=== PATIENT | male | born 1960 | race American Indian/Alaskan Native ===

== ENCOUNTER 2018-05-16 08:40 | Inpatient (IN) | payer OTHER ==
[2018-05-16] MEDS ORDERED: PROTONIX IV ONE (09:28)
[2018-05-16] MEDS ORDERED: WATER FOR INJ Sterile (PF) 10 ML ONE (09:37)
[2018-05-16] MEDS ORDERED: MORPHINE ONE (09:45)
[2018-05-16 09:54] LABS: Hematocrit 46.4 % (35.5-45.6); Hemoglobin 15.8 gm/dl (11.8-15.2); Mean Corpuscular HGB Conc 34 % (32-34); Mean Corpuscular Volume 91 fl (84-94); Platelet Count 203 K/mm3 (140-440); Red Blood Count 5.09 M/mm3 (3.65-5.03); Red Cell Distribution Width 14.3 % (13.2-15.2)
[2018-05-16] MEDS ORDERED: MORPHINE IV ONE (09:57)
[2018-05-16 10:13] LABS: INR 0.85 (0.87-1.13); Partial Thromboplastin Time 21.8 Sec. (24.2-36.6)
--- NOTE | 2018-05-16 10:28 | XRay Report ---
AP CHEST: HISTORY: chest pain AP view of the chest demonstrates a normal mediastinal and cardiac contour with clear lungs and normal bony and soft tissue structures. IMPRESSION: Unremarkable AP chest.
[2018-05-16 10:30] LABS: Blood Urea Nitrogen TNR mg/dL (9-20)
[2018-05-16 10:31] LABS: Alanine Aminotransferase TNR units/L (7-56); Albumin TNR g/dL (3.9-5); BUN/Creatinine Ratio TNR; Calcium TNR mg/dL (8.4-10.2); Hemolysis Index TNR
[2018-05-16 11:12] LABS: Anisocytosis 1+; Band Neutrophils # (Manual) 0.3 K/mm3; Basophils % (Manual) 0 % (0.0-1.8); Eosinophils % (Manual) 0 % (0.0-4.3); Total Cells Counted 100
[2018-05-16 11:13] LABS: Macrocytosis 1+; Platelet Estimate Consistent w Auto
[2018-05-16] MEDS: PROTONIX 80 MG in NACL 0.9% 100 ML IV SCH ×2 (11:28→22:14)
--- NOTE | 2018-05-16 11:28 | Emergency Department Report ---
ED General Adult HPI - General Chief complaint: Abdominal Pain Stated complaint: VOMITING BLOOD Time Seen by Provider: 05/16/18 09:11 Source: patient Mode of arrival: Ambulatory Limitations: No Limitations - History of Present Illness Initial comments: The patient presents to the emergency prompt a chief complaint of vomiting blood 3. Patient states the symptoms started yesterday. He describes the presence of blood in his emesis as bright red what dark clots. He also complains of some mild abdominal pain as well. Patient denies chest pain, shortness breath, or headache. -: Sudden Location: abdomen Severity scale (0 -10): 4 Quality: burning Consistency: constant Improves with: none Worsens with: none Associated Symptoms: denies other symptoms Treatments Prior to Arrival: none - Related Data Home Medications Medication Instructions Recorded Confirmed Last Taken Aspirin [Adult Aspirin] 81 mg PO DAILY 05/16/18 05/16/18 Unknown Fluticasone [Flonase] 1 spray NS QDAY 05/16/18 05/16/18 Unknown Loratadine [Claritin] 10 mg PO DAILY 05/16/18 05/16/18 Unknown Multivitamin/Iron/Folic Acid 1 each PO DAILY 05/16/18 05/16/18 Unknown [Centrum Adults Tablet] Sertraline [Zoloft] 75 mg PO QDAY 05/16/18 05/16/18 Unknown amLODIPine [Norvasc] 5 mg PO DAILY 05/16/18 05/16/18 Unknown Previous Rx's Medication Instructions Recorded Last Taken Type Folic Acid 0.4 mg PO QDAY #30 tablet 05/18/18 Unknown Rx Multivitamin Tab [Multiple Vitamin 1 each PO QDAY #30 tablet 05/18/18 Unknown Rx TAB (Theragran)] Pantoprazole [Protonix TAB] 40 mg PO QDAY #30 tablet 05/18/18 Unknown Rx Thiamine [Vitamin B-1] 100 mg PO QDAY #30 tablet 05/18/18 Unknown Rx chlordiazePOXIDE [Librium] 25 mg PO Q8H #14 capsule 05/18/18 Unknown Rx cloNIDine-TTS PATCH [Catapres-Tts 0.1 mg TD Tu #30 patch 05/18/18 Unknown Rx Patch] Allergies Allergy/AdvReac Type Severity Reaction Status Date / Time No Known Allergies Allergy Verified 05/16/18 08:41 ED Review of Systems ROS: Stated complaint: VOMITING BLOOD Other details as noted in HPI Comment: All other systems reviewed and negative Constitutional: denies: chills, fever Eyes: denies: eye pain, eye discharge, vision change ENT: denies: ear pain, throat pain Respiratory: denies: cough, shortness of breath, wheezing Cardiovascular: denies: chest pain, palpitations Endocrine: no symptoms reported Gastrointestinal: hematemesis. denies: abdominal pain, nausea, diarrhea Genitourinary: denies: urgency, dysuria Musculoskeletal: denies: back pain, joint swelling, arthralgia Skin: denies: rash, lesions Neurological: denies: headache, weakness, paresthesias Psychiatric: denies: anxiety, depression Hematological/Lymphatic: denies: easy bleeding, easy bruising ED Past Medical Hx - Past Medical History Previous Medical History?: Yes Hx Hypertension: Yes Hx Psychiatric Treatment: Yes (depression, PTSD) - Surgical History Past Surgical History?: Yes Hx Appendectomy: Yes - Social History Smoking Status: Former Smoker Substance Use Type: Alcohol - Medications Home Medications: Home Medications Medication Instructions Recorded Confirmed Last Taken Type Aspirin [Adult Aspirin] 81 mg PO DAILY 05/16/18 05/16/18 Unknown History Fluticasone [Flonase] 1 spray NS QDAY 05/16/18 05/16/18 Unknown History Loratadine [Claritin] 10 mg PO DAILY 05/16/18 05/16/18 Unknown History Multivitamin/Iron/Folic Acid 1 each PO DAILY 05/16/18 05/16/18 Unknown History [Centrum Adults Tablet] Sertraline [Zoloft] 75 mg PO QDAY 05/16/18 05/16/18 Unknown History amLODIPine [Norvasc] 5 mg PO DAILY 05/16/18 05/16/18 Unknown History Folic Acid 0.4 mg PO QDAY #30 tablet 05/18/18 Unknown Rx Multivitamin Tab [Multiple Vitamin 1 each PO QDAY #30 tablet 05/18/18 Unknown Rx TAB (Theragran)] Pantoprazole [Protonix TAB] 40 mg PO QDAY #30 tablet 05/18/18 Unknown Rx Thiamine [Vitamin B-1] 100 mg PO QDAY #30 tablet 05/18/18 Unknown Rx chlordiazePOXIDE [Librium] 25 mg PO Q8H #14 capsule 05/18/18 Unknown Rx cloNIDine-TTS PATCH [Catapres-Tts 0.1 mg TD Tu #30 patch 05/18/18 Unknown Rx Patch] ED Physical Exam - General Limitations: No Limitations General appearance: alert, in no apparent distress - Head Head exam: Present: atraumatic, normocephalic - Eye Eye exam: Present: normal appearance, PERRL, EOMI - ENT ENT exam: Present: mucous membranes moist - Neck Neck exam: Present: normal inspection - Respiratory Respiratory exam: Present: normal lung sounds bilaterally. Absent: respiratory distress, wheezes, rales - Cardiovascular Cardiovascular Exam: Present: normal rhythm, tachycardia. Absent: systolic murmur, diastolic murmur, rubs, gallop - GI/Abdominal GI/Abdominal exam: Present: soft, normal bowel sounds. Absent: distended, tenderness - Rectal Rectal exam: Present: deferred - Extremities Exam Extremities exam: Present: normal inspection - Back Exam Back exam: Present: normal inspection - Neurological Exam Neurological exam: Present: alert, oriented X3, CN II-XII intact. Absent: motor sensory deficit - Psychiatric Psychiatric exam: Present: normal affect, normal mood - Skin Skin exam: Present: warm, dry, intact, normal color. Absent: rash ED Course Vital Signs 05/16/18 05/16/18 05/16/18 08:53 09:23 09:25 Temperature 98.5 F Pulse Rate 145 H Respiratory 16 Rate Blood Pressure 147/104 Blood Pressure 161/104 [Left] O2 Sat by Pulse 97 97 97 Oximetry 05/16/18 05/16/18 05/16/18 10:32 11:21 11:30 Temperature Pulse Rate 106 H 106 H Respiratory 17 20 Rate Blood Pressure Blood Pressure 156/105 152/97 [Left] O2 Sat by Pulse 98 98 96 Oximetry 05/16/18 05/16/18 05/16/18 12:00 13:00 14:00 Temperature Pulse Rate 103 H 111 H 102 H Respiratory 14 17 9 L Rate Blood Pressure 141/100 151/106 166/104 Blood Pressure [Left] O2 Sat by Pulse Oximetry 05/16/18 05/16/18 05/16/18 15:00 16:38 17:00 Temperature Pulse Rate 106 H 110 H 96 H Respiratory 12 13 Rate Blood Pressure 159/106 158/103 158/107 Blood Pressure [Left] O2 Sat by Pulse 95 Oximetry 05/16/18 17:11 Temperature Pulse Rate 96 H Respiratory 10 L Rate Blood Pressure 158/107 Blood Pressure [Left] O2 Sat by Pulse Oximetry ED Medical Decision Making - Lab Data Result diagrams: 05/17/18 15:07 05/17/18 05:34 Lab Results 05/16/18 05/16/18 05/16/18 Range/Units 09:37 09:37 09:37 WBC 13.5 H (4.5-11.0) K/mm3 RBC 5.09 H (3.65-5.03) M/mm3 Hgb 15.8 H (11.8-15.2) gm/dl Hct 46.4 H (35.5-45.6) % MCV 91 (84-94) fl MCH 31 (28-32) pg MCHC 34 (32-34) % RDW 14.3 (13.2-15.2) % Plt Count 203 (140-440) K/mm3 Add Manual Diff Complete Total Counted 100 Seg Neuts % (Manual) 83.0 H (40.0-70.0) % Band Neutrophils % 2.0 % Lymphocytes % (Manual) 11.0 L (13.4-35.0) % Reactive Lymphs % (Man) 1.0 % Monocytes % (Manual) 3.0 (0.0-7.3) % Eosinophils % (Manual) 0 (0.0-4.3) % Basophils % (Manual) 0 (0.0-1.8) % Metamyelocytes % 0 % Myelocytes % 0 % Promyelocytes % 0 % Blast Cells % 0 % Nucleated RBC % Not Reportable Seg Neutrophils # Man 11.2 H (1.8-7.7) K/mm3 Band Neutrophils # 0.3 K/mm3 Lymphocytes # (Manual) 1.5 (1.2-5.4) K/mm3 Abs React Lymphs (Man) 0.1 K/mm3 Monocytes # (Manual) 0.4 (0.0-0.8) K/mm3 Eosinophils # (Manual) 0.0 (0.0-0.4) K/mm3 Basophils # (Manual) 0.0 (0.0-0.1) K/mm3 Metamyelocytes # 0.0 K/mm3 Myelocytes # 0.0 K/mm3 Promyelocytes # 0.0 K/mm3 Blast Cells # 0.0 K/mm3 WBC Morphology Not Reportable Hypersegmented Neuts Not Reportable Hyposegmented Neuts Not Reportable Hypogranular Neuts Not Reportable Smudge Cells Not Reportable Toxic Granulation Not Reportable Toxic Vacuolation Not Reportable Dohle Bodies Not Reportable Pelger-Huet Anomaly Not Reportable Analilia Rods Not Reportable Platelet Estimate Consistent w auto Clumped Platelets Not Reportable Plt Clumps, EDTA Not Reportable Large Platelets Not Reportable Giant Platelets Not Reportable Platelet Satelliting Not Reportable Plt Morphology Comment Not Reportable RBC Morphology Not Reportable Dimorphic RBCs Not Reportable Polychromasia Not Reportable Hypochromasia Not Reportable Poikilocytosis Not Reportable Anisocytosis 1+ Microcytosis Not Reportable Macrocytosis 1+ Spherocytes Not Reportable Pappenheimer Bodies Not Reportable Sickle Cells Not Reportable Target Cells Not Reportable Tear Drop Cells Not Reportable Ovalocytes Not Reportable Helmet Cells Not Reportable [place] Bodies Not Reportable [place] Rings Not Reportable [place] Cells Not Reportable Bite Cells Not Reportable Crenated Cell Not Reportable Elliptocytes Not Reportable Acanthocytes (Spur) Not Reportable Rouleaux Not Reportable Hemoglobin C Crystals Not Reportable Schistocytes Not Reportable Malaria parasites Not Reportable Dayday Bodies Not Reportable Hem Pathologist Commnt No PT 12.1 L (12.2-14.9) Sec. INR 0.85 L (0.87-1.13) APTT 21.8 L (24.2-36.6) Sec. Sodium TNR Potassium TNR Chloride TNR Carbon Dioxide TNR Anion Gap TNR BUN TNR Creatinine TNR Estimated GFR TNR BUN/Creatinine Ratio TNR Glucose TNR Calcium TNR Total Bilirubin TNR AST TNR ALT TNR Alkaline Phosphatase TNR NT-Pro-B Natriuret Pep (0-900) pg/mL Total Protein TNR Albumin TNR Albumin/Globulin Ratio TNR Blood Type Antibody Screen 05/16/18 05/16/18 Range/Units 09:37 11:00 WBC (4.5-11.0) K/mm3 RBC (3.65-5.03) M/mm3 Hgb (11.8-15.2) gm/dl Hct (35.5-45.6) % MCV (84-94) fl MCH (28-32) pg MCHC (32-34) % RDW (13.2-15.2) % Plt Count (140-440) K/mm3 Add Manual Diff Total Counted Seg Neuts % (Manual) (40.0-70.0) % Band Neutrophils % % Lymphocytes % (Manual) (13.4-35.0) % Reactive Lymphs % (Man) % Monocytes % (Manual) (0.0-7.3) % Eosinophils % (Manual) (0.0-4.3) % Basophils % (Manual) (0.0-1.8) % Metamyelocytes % % Myelocytes % % Promyelocytes % % Blast Cells % % Nucleated RBC % Seg Neutrophils # Man (1.8-7.7) K/mm3 Band Neutrophils # K/mm3 Lymphocytes # (Manual) (1.2-5.4) K/mm3 Abs React Lymphs (Man) K/mm3 Monocytes # (Manual) (0.0-0.8) K/mm3 Eosinophils # (Manual) (0.0-0.4) K/mm3 Basophils # (Manual) (0.0-0.1) K/mm3 Metamyelocytes # K/mm3 Myelocytes # K/mm3 Promyelocytes # K/mm3 Blast Cells # K/mm3 WBC Morphology Hypersegmented Neuts Hyposegmented Neuts Hypogranular Neuts Smudge Cells Toxic Granulation Toxic Vacuolation Dohle Bodies Pelger-Huet Anomaly Analilia Rods Platelet Estimate Clumped Platelets Plt Clumps, EDTA Large Platelets Giant Platelets Platelet Satelliting Plt Morphology Comment RBC Morphology Dimorphic RBCs Polychromasia Hypochromasia Poikilocytosis Anisocytosis Microcytosis Macrocytosis Spherocytes Pappenheimer Bodies Sickle Cells Target Cells Tear Drop Cells Ovalocytes Helmet Cells [place] Bodies [place] Rings [place] Cells Bite Cells Crenated Cell Elliptocytes Acanthocytes (Spur) Rouleaux Hemoglobin C Crystals Schistocytes Malaria parasites Dayday Bodies Hem Pathologist Commnt PT (12.2-14.9) Sec. INR (0.87-1.13) APTT (24.2-36.6) Sec. Sodium 135 L Potassium 4.0 Chloride 94.1 L Carbon Dioxide 23 Anion Gap 22 BUN 13 Creatinine 0.9 Estimated GFR > 60 BUN/Creatinine Ratio 14 Glucose 85 Calcium 8.8 Total Bilirubin 1.10 AST 44 H ALT 58 H Alkaline Phosphatase 72 NT-Pro-B Natriuret Pep 101.4 (0-900) pg/mL Total Protein 6.9 Albumin 3.9 Albumin/Globulin Ratio 1.3 Blood Type O NEGATIVE Antibody Screen Negative - EKG Data -: EKG Interpreted by Me EKG shows normal: sinus rhythm Rate: tachycardia - Radiology Data Radiology results: report reviewed IV Protonix push and drip initiated\ Results discussed with patient Critical Care Time: Yes Critical care time in (mins) excluding proc time.: 35 Critical care attestation.: If time is entered above; I have spent that time in minutes in the direct care of this critically ill patient, excluding procedure time. ED Disposition Clinical Impression: Hematemesis Disposition: DC-01 TO HOME OR SELFCARE Is pt being admited?: Yes Does the pt Need Aspirin: No Condition: Stable
[2018-05-16 11:36] LABS: Alanine Aminotransferase 58 units/L (7-56); Albumin 3.9 g/dL (3.9-5); BUN/Creatinine Ratio 14; Blood Urea Nitrogen 13 mg/dL (9-20); Calcium 8.8 mg/dL (8.4-10.2); Hemolysis Index 15
[2018-05-16] MEDS ORDERED: ATIVAN PO PRN (13:37)
[2018-05-16] MEDS ORDERED: LIBRIUM PO PRN ×2 (13:37)
[2018-05-16] MEDS ORDERED: ATIVAN IV PRN (13:37)
--- NOTE | 2018-05-16 13:43 | Cat Scan Report ---
CT ABDOMEN PELVIS WITH CONTRAST: HISTORY: abdominal pain, hematemesis. COMPARISON: none. TECHNIQUE: Helical CT in 1.25mm intervals following IV contrast. Sagittal and coronal reconstructions. FINDINGS: Lung bases: Normal. Liver: There is moderate diffuse fatty infiltration throughout the liver. No enlargement or focal mass. Biliary system: Normal. Pancreas: Normal. Spleen: Normal. Kidneys/ureters/bladder: A 6.9 cm cyst is identified at the inferior pole of the left kidney. A few tiny millimetric right renal cysts are noted. A 5 mm calculus is identified at the inferior pole of the left kidney. There is no evidence for hydronephrosis. The ureters and bladder are unremarkable. Adrenal glands: Normal. Aorta: Normal. Intestines: Limited without oral contrast. There is no evidence for obstruction, ulceration or inflammatory changes. Mild diverticulosis of the colon is noted. Appendix: Not confidently identified. Ascites: None. Adenopathy: None. Musculoskeletal: Intact. Mild thoracolumbar spondylosis. IMPRESSION: No acute process is identified. Fatty infiltration of the liver. Bilateral renal cysts. Nonobstructing left renal stone. Mild diverticulosis of the colon.
[2018-05-16] MEDS: ATIVAN PO PRN (20:25)
[2018-05-16] MEDS ORDERED: CATAPRES-TTS PATCH TD SCH (22:00)
[2018-05-16] MEDS ORDERED: REGLAN IV PRN (22:01)
[2018-05-16] MEDS ORDERED: SODIUM CHLORIDE FLUSH SYRINGE 10 ML IV PRN (22:01)
[2018-05-16] MEDS ORDERED: ZOFRAN IV PRN (22:01)
[2018-05-16] MEDS ORDERED: DILAUDID IV PRN (22:01)
[2018-05-16] MEDS ORDERED: TYLENOL PO PRN (22:01)
--- NOTE | 2018-05-16 22:02 | History and Physical Report ---
History of Present Illness Date of examination: 05/16/18 Date of admission: 05/16/18 14:52 Chief complaint: Vomiting blood for 2 days History of present illness: 58-year-old -German male with history of hypertension, allergic rhinitis and depression comes in for vomiting blood for last 2 days. Had 3 episodes. The day before was a very small amount-small streak of blood. Patient had excessive amount of alcohol last night after which he vomited blood. Also vomited blood this morning because of which he came to the emergency room. Never had an upper GI bleed in the past. No lightheadedness. No dark stools. No syncope. Patient has a history of PTSD for which he takes sertraline. Alcohol consumption on a regular basis. Vomit was bright red blood. No fever or chills. Past Medical History Previous Medical History?: Yes Hx Hypertension: Yes Hx Psychiatric Treatment: Yes (depression, PTSD) Surgical History Past Surgical History?: Yes Hx Appendectomy: Yes Social History Smoking Status: Former Smoker Substance Use Type: Alcohol Medications Home Medications: Home Medications Medication Instructions Recorded Confirmed Last Taken Type Amoxicillin/Potassium Clav 1 each PO BID 05/16/18 05/16/18 Unknown History [Augmentin 875-125 Tablet] Aspirin [Adult Aspirin] 81 mg PO DAILY 05/16/18 05/16/18 Unknown History Fluticasone [Flonase] 1 spray NS QDAY 05/16/18 05/16/18 Unknown History Loratadine [Claritin] 10 mg PO DAILY 05/16/18 05/16/18 Unknown History Multivitamin/Iron/Folic Acid 1 each PO DAILY 05/16/18 05/16/18 Unknown History [Centrum Adults Tablet] Sertraline [Zoloft] 75 mg PO QDAY 05/16/18 05/16/18 Unknown History amLODIPine [Norvasc] 5 mg PO DAILY 05/16/18 05/16/18 Unknown History Review of systems ROS: Stated complaint: VOMITING BLOOD Other details as noted in HPI Comment: All other systems reviewed and negative Constitutional: denies: chills, fever Eyes: denies: eye pain, eye discharge, vision change ENT: denies: ear pain, throat pain Respiratory: denies: cough, shortness of breath, wheezing Cardiovascular: denies: chest pain, palpitations Endocrine: no symptoms reported Gastrointestinal: hematemesis. denies: abdominal pain, nausea, diarrhea Genitourinary: denies: urgency, dysuria Musculoskeletal: denies: back pain, joint swelling, arthralgia Skin: denies: rash, lesions Neurological: denies: headache, weakness, paresthesias Psychiatric: denies: anxiety, depression Hematological/Lymphatic: denies: easy bleeding, easy bruising Medications and Allergies Allergies Allergy/AdvReac Type Severity Reaction Status Date / Time No Known Allergies Allergy Verified 05/16/18 08:41 Home Medications Medication Instructions Recorded Confirmed Last Taken Type Amoxicillin/Potassium Clav 1 each PO BID 05/16/18 05/16/18 Unknown History [Augmentin 875-125 Tablet] Aspirin [Adult Aspirin] 81 mg PO DAILY 05/16/18 05/16/18 Unknown History Fluticasone [Flonase] 1 spray NS QDAY 05/16/18 05/16/18 Unknown History Loratadine [Claritin] 10 mg PO DAILY 05/16/18 05/16/18 Unknown History Multivitamin/Iron/Folic Acid 1 each PO DAILY 05/16/18 05/16/18 Unknown History [Centrum Adults Tablet] Sertraline [Zoloft] 75 mg PO QDAY 05/16/18 05/16/18 Unknown History amLODIPine [Norvasc] 5 mg PO DAILY 05/16/18 05/16/18 Unknown History Active Meds: Active Medications Chlordiazepoxide HCl (Librium) 50 mg PO Q1HR PRN PRN Reason: CIWA-Ar 8-15 Chlordiazepoxide HCl (Librium) 100 mg PO Q1HR PRN PRN Reason: CIWA-Ar 16-25 Pantoprazole Sodium 80 mg/ (Sodium Chloride) 100 mls @ 10 mls/hr IV DIRECT [facility] Last Admin: 05/16/18 11:28 Dose: 8 mg/hr, 10 mls/hr Documented by: Lorazepam (Ativan) 2 mg PO Q1HR PRN PRN Reason: CIWA-Ar 8-15 Last Admin: 05/16/18 20:25 Dose: 2 mg Documented by: Lorazepam (Ativan) 4 mg PO Q1HR PRN PRN Reason: CIWA-Ar 16-25 Lorazepam (Ativan) 4 mg IV Q15MIN PRN PRN Reason: CIWA-Ar >25 Exam - Constitutional Vitals: Temp Pulse Resp BP Pulse Ox 98.5 F 96 H 13 158/107 95 05/16/18 08:53 05/16/18 17:00 05/16/18 16:38 05/16/18 17:00 05/16/18 15:00 General appearance: Present: no acute distress, well-nourished - EENT Eyes: Present: PERRL ENT: hearing intact, clear oral mucosa - Neck Neck: Present: supple, normal ROM - Respiratory Respiratory effort: normal Respiratory: bilateral: CTA - Cardiovascular Heart rate: 76 Rhythm: regular Heart Sounds: Present: S1 & S2. Absent: rub, click - Extremities Extremities: no ischemia, pulses intact, pulses symmetrical, No edema Peripheral Pulses: within normal limits - Abdominal General gastrointestinal: Present: soft, non-tender, non-distended, normal bowel sounds Male genitourinary: Present: normal - Integumentary Integumentary: Present: clear, warm, dry - Musculoskeletal Musculoskeletal: gait normal, strength equal bilaterally - Psychiatric Psychiatric: appropriate mood/affect, intact judgment & insight - Neurologic Neurologic: CNII-XII intact, moves all extremities - Allied Health Allied health notes reviewed: nursing, case management Results - Labs CBC & Chem 7: 05/16/18 09:37 05/16/18 11:00 Labs: Laboratory Last Values WBC 13.5 K/mm3 (4.5-11.0) H 05/16/18 09:37 RBC 5.09 M/mm3 (3.65-5.03) H 05/16/18 09:37 Hgb 15.8 gm/dl (11.8-15.2) H 05/16/18 09:37 Hct 46.4 % (35.5-45.6) H 05/16/18 09:37 MCV 91 fl (84-94) 05/16/18 09:37 MCH 31 pg (28-32) 05/16/18 09:37 MCHC 34 % (32-34) 05/16/18 09:37 RDW 14.3 % (13.2-15.2) 05/16/18 09:37 Plt Count 203 K/mm3 (140-440) 05/16/18 09:37 Add Manual Diff Complete 05/16/18 09:37 Total Counted 100 05/16/18 09:37 Seg Neuts % (Manual) 83.0 % (40.0-70.0) H 05/16/18 09:37 Band Neutrophils % 2.0 % 05/16/18 09:37 Lymphocytes % (Manual) 11.0 % (13.4-35.0) L 05/16/18 09:37 Reactive Lymphs % (Man) 1.0 % 05/16/18 09:37 Monocytes % (Manual) 3.0 % (0.0-7.3) 05/16/18 09:37 Eosinophils % (Manual) 0 % (0.0-4.3) 05/16/18 09:37 Basophils % (Manual) 0 % (0.0-1.8) 05/16/18 09:37 Metamyelocytes % 0 % 05/16/18 09:37 Myelocytes % 0 % 05/16/18 09:37 Promyelocytes % 0 % 05/16/18 09:37 Blast Cells % 0 % 05/16/18 09:37 Nucleated RBC % Not Reportable 05/16/18 09:37 Seg Neutrophils # Man 11.2 K/mm3 (1.8-7.7) H 05/16/18 09:37 Band Neutrophils # 0.3 K/mm3 05/16/18 09:37 Lymphocytes # (Manual) 1.5 K/mm3 (1.2-5.4) 05/16/18 09:37 Abs React Lymphs (Man) 0.1 K/mm3 05/16/18 09:37 Monocytes # (Manual) 0.4 K/mm3 (0.0-0.8) 05/16/18 09:37 Eosinophils # (Manual) 0.0 K/mm3 (0.0-0.4) 05/16/18 09:37 Basophils # (Manual) 0.0 K/mm3 (0.0-0.1) 05/16/18 09:37 Metamyelocytes # 0.0 K/mm3 05/16/18 09:37 Myelocytes # 0.0 K/mm3 05/16/18 09:37 Promyelocytes # 0.0 K/mm3 05/16/18 09:37 Blast Cells # 0.0 K/mm3 05/16/18 09:37 WBC Morphology Not Reportable 05/16/18 09:37 Hypersegmented Neuts Not Reportable 05/16/18 09:37 Hyposegmented Neuts Not Reportable 05/16/18 09:37 Hypogranular Neuts Not Reportable 05/16/18 09:37 Smudge Cells Not Reportable 05/16/18 09:37 Toxic Granulation Not Reportable 05/16/18 09:37 Toxic Vacuolation Not Reportable 05/16/18 09:37 Dohle Bodies Not Reportable 05/16/18 09:37 Pelger-Huet Anomaly Not Reportable 05/16/18 09:37 Analilia Rods Not Reportable 05/16/18 09:37 Platelet Estimate Consistent w auto 05/16/18 09:37 Clumped Platelets Not Reportable 05/16/18 09:37 Plt Clumps, EDTA Not Reportable 05/16/18 09:37 Large Platelets Not Reportable 05/16/18 09:37 Giant Platelets Not Reportable 05/16/18 09:37 Platelet Satelliting Not Reportable 05/16/18 09:37 Plt Morphology Comment Not Reportable 05/16/18 09:37 RBC Morphology Not Reportable 05/16/18 09:37 Dimorphic RBCs Not Reportable 05/16/18 09:37 Polychromasia Not Reportable 05/16/18 09:37 Hypochromasia Not Reportable 05/16/18 09:37 Poikilocytosis Not Reportable 05/16/18 09:37 Anisocytosis 1+ 05/16/18 09:37 Microcytosis Not Reportable 05/16/18 09:37 Macrocytosis 1+ 05/16/18 09:37 Spherocytes Not Reportable 05/16/18 09:37 Pappenheimer Bodies Not Reportable 05/16/18 09:37 Sickle Cells Not Reportable 05/16/18 09:37 Target Cells Not Reportable 05/16/18 09:37 Tear Drop Cells Not Reportable 05/16/18 09:37 Ovalocytes Not Reportable 05/16/18 09:37 Helmet Cells Not Reportable 05/16/18 09:37 [place] Bodies Not Reportable 05/16/18 09:37 [place] Rings Not Reportable 05/16/18 09:37 [place] Cells Not Reportable 05/16/18 09:37 Bite Cells Not Reportable 05/16/18 09:37 Crenated Cell Not Reportable 05/16/18 09:37 Elliptocytes Not Reportable 05/16/18 09:37 Acanthocytes (Spur) Not Reportable 05/16/18 09:37 Rouleaux Not Reportable 05/16/18 09:37 Hemoglobin C Crystals Not Reportable 05/16/18 09:37 Schistocytes Not Reportable 05/16/18 09:37 Malaria parasites Not Reportable 05/16/18 09:37 Dayday Bodies Not Reportable 05/16/18 09:37 Hem Pathologist Commnt No 05/16/18 09:37 PT 12.1 Sec. (12.2-14.9) L 05/16/18 09:37 INR 0.85 (0.87-1.13) L 05/16/18 09:37 APTT 21.8 Sec. (24.2-36.6) L 05/16/18 09:37 Sodium 135 mmol/L (137-145) L 05/16/18 11:00 Potassium 4.0 mmol/L (3.6-5.0) 05/16/18 11:00 Chloride 94.1 mmol/L (98-107) L 05/16/18 11:00 Carbon Dioxide 23 mmol/L (22-30) 05/16/18 11:00 Anion Gap 22 mmol/L 05/16/18 11:00 BUN 13 mg/dL (9-20) 05/16/18 11:00 Creatinine 0.9 mg/dL (0.8-1.5) 05/16/18 11:00 Estimated GFR > 60 ml/min 05/16/18 11:00 BUN/Creatinine Ratio 14 % 05/16/18 11:00 Glucose 85 mg/dL (75-100) 05/16/18 11:00 Calcium 8.8 mg/dL (8.4-10.2) 05/16/18 11:00 Total Bilirubin 1.10 mg/dL (0.1-1.2) 05/16/18 11:00 AST 44 units/L (5-40) H 05/16/18 11:00 ALT 58 units/L (7-56) H 05/16/18 11:00 Alkaline Phosphatase 72 units/L (35-129) 05/16/18 11:00 NT-Pro-B Natriuret Pep 101.4 pg/mL (0-900) 05/16/18 11:00 Total Protein 6.9 g/dL (6.3-8.2) 05/16/18 11:00 Albumin 3.9 g/dL (3.9-5) 05/16/18 11:00 Albumin/Globulin Ratio 1.3 % 05/16/18 11:00 Blood Type O NEGATIVE 05/16/18 09:37 Antibody Screen Negative 05/16/18 09:37 - Imaging and Cardiology EKG: report reviewed (sinus tachycardia heart rate of 125/m left atrial enlargement) Imaging and Cardiology: CT of the abdomen IMPRESSION: No acute process is identified. Fatty infiltration of the liver. Bilateral renal cysts. Nonobstructing left renal stone. Mild diverticulosis of the colon. Chest x-ray IMPRESSION: Unremarkable AP chest. Assessment and Plan Advance Directives: Yes (full code) VTE prophylaxis?: Mechanical Reason for no VTE Prophylaxis: Bleeding Plan of care discussed with patient/family: Yes - Patient Problems (1) Upper GI bleed Current Visit: Yes Status: Acute Plan to address problem: Probable Olga-Bear tear Hemoglobin and hematocrit every 6 hours Transfuse if necessary IV Protonix drip initiated GI consult ordered Possible EGD tomorrow (2) Hypertension Current Visit: Yes Status: Chronic Qualifiers: Hypertension type: essential hypertension Qualified Code(s): I10 - Essential (primary) hypertension Plan to address problem: Catapres-TTS patch initiated (3) Allergic rhinitis Current Visit: Yes Status: Chronic Qualifiers: Allergic rhinitis trigger: pollen Allergic rhinitis seasonality: unspecified Qualified Code(s): J30.1 - Allergic rhinitis due to pollen Plan to address problem: Continue Flonase (4) Depression Current Visit: Yes Status: Chronic Qualifiers: Depression Type: unspecified Qualified Code(s): F32.9 - Major depressive disorder, single episode, unspecified Plan to address problem: We will hold Zoloft until EGD is done and cleared for oral intake (5) DVT prophylaxis Current Visit: Yes Status: Acute Plan to address problem: On SCDs and on Protonix drip
[2018-05-16] MEDS: D5NS 1,000 ML IV SCH (22:15)
[2018-05-16] MEDS: SODIUM CHLORIDE FLUSH SYRINGE 10 ML IV SCH (22:16)
[2018-05-17 00:03] LABS: Hematocrit 44.2 % (35.5-45.6); Hemoglobin 15.3 gm/dl (11.8-15.2)
[2018-05-17] MEDS: ATIVAN PO PRN ×2 (05:49→18:03)
[2018-05-17 06:37] LABS: Basophils % (Auto) 0.4 % (0.0-1.8); Eosinophils # (Auto) 0.1 K/mm3 (0.0-0.4); Eosinophils % (Auto) 0.7 % (0.0-4.3); Hematocrit 45.2 % (35.5-45.6); Hemoglobin 15.6 gm/dl (11.8-15.2); Lymphocytes # (Auto) 1.6 K/mm3 (1.2-5.4); Lymphocytes % (Auto) 20.6 % (13.4-35.0); Mean Corpuscular HGB Conc 35 % (32-34); Mean Corpuscular Volume 92 fl (84-94); Monocytes % (Auto) 12.4 % (0.0-7.3); Platelet Count 162 K/mm3 (140-440); Red Cell Distribution Width 14.3 % (13.2-15.2)
[2018-05-17 06:53] LABS: Alanine Aminotransferase 46 units/L (7-56); Albumin 3.7 g/dL (3.9-5); BUN/Creatinine Ratio 15; Blood Urea Nitrogen 15 mg/dL (9-20); Calcium 8.4 mg/dL (8.4-10.2); Hemolysis Index 12
[2018-05-17] MEDS: SODIUM CHLORIDE FLUSH SYRINGE 10 ML IV SCH (09:14)
[2018-05-17] MEDS: FLONASE NS SCH (10:00)
[2018-05-17 10:35] LABS: Hematocrit 43.4 % (35.5-45.6)
[2018-05-17] MEDS ORDERED: AFLURIA QUAD 2018-2019 SYRINGE IM ONE (12:00)
--- NOTE | 2018-05-17 13:33 | Gastroenterology Consultation ---
History of Present Illness - Reason for Consult Consult date: 05/17/18 GI bleed Requesting physician: RYAN MADRID - History of Present Illness Patient is a 58 y/o male with PMH of HTN, allergic rhinitis, depression, PTSD, and alcohol dependency who presented to ED with c/o vomiting blood to which GI has been consulted. Patient reports multiple episodes of N/V following a night of heavy alcohol consumption with emesis being non-bloody with initial episodes and then became bloody with bright red blood on subsequent episodes. This morning patient was resting in bed w/o acute distress. He reports feeling better with no further N/V since last night. No melena or hematochezia. Denies fever, CP, SOB, dizziness, abd pain, jaundice, diarrhea, or constipation. Admits to heavy daily alcohol use but no hx of liver disease or PUD. No prior EGD or colonoscopy. Past History Past Medical History: other (as per HPI) Past Surgical History: appendectomy Social history: alcohol abuse, other (former smoker) Medications and Allergies Allergies Allergy/AdvReac Type Severity Reaction Status Date / Time No Known Allergies Allergy Verified 05/16/18 08:41 Home Medications Medication Instructions Recorded Confirmed Last Taken Type Amoxicillin/Potassium Clav 1 each PO BID 05/16/18 05/16/18 Unknown History [Augmentin 875-125 Tablet] Aspirin [Adult Aspirin] 81 mg PO DAILY 05/16/18 05/16/18 Unknown History Fluticasone [Flonase] 1 spray NS QDAY 05/16/18 05/16/18 Unknown History Loratadine [Claritin] 10 mg PO DAILY 05/16/18 05/16/18 Unknown History Multivitamin/Iron/Folic Acid 1 each PO DAILY 05/16/18 05/16/18 Unknown History [Centrum Adults Tablet] Sertraline [Zoloft] 75 mg PO QDAY 05/16/18 05/16/18 Unknown History amLODIPine [Norvasc] 5 mg PO DAILY 05/16/18 05/16/18 Unknown History Active Meds: Active Medications Acetaminophen (Tylenol) 650 mg PO Q4H PRN PRN Reason: Pain MILD(1-3)/Fever >100.5/PRIDE Chlordiazepoxide HCl (Librium) 50 mg PO Q1HR PRN PRN Reason: CIWA-Ar 8-15 Chlordiazepoxide HCl (Librium) 100 mg PO Q1HR PRN PRN Reason: CIWA-Ar 16-25 Clonidine HCl (Catapres-Tts Patch) 0.1 mg TD Tu [facility] Last Admin: 05/16/18 23:48 Dose: 0.1 mg Documented by: Fluticasone Propionate (Flonase) 50 mcg NS QDAY [facility] Hydromorphone HCl (Dilaudid) 0.5 mg IV Q3H PRN PRN Reason: Pain , Severe (7-10) Dextrose/Sodium Chloride (D5ns) 1,000 mls @ 75 mls/hr IV DIRECT [facility] Last Admin: 05/16/18 22:15 Dose: 75 mls/hr Documented by: Lorazepam (Ativan) 2 mg PO Q1HR PRN PRN Reason: CIWA-Ar 8-15 Last Admin: 05/17/18 05:49 Dose: 2 mg Documented by: Lorazepam (Ativan) 4 mg PO Q1HR PRN PRN Reason: CIWA-Ar 16-25 Lorazepam (Ativan) 4 mg IV Q15MIN PRN PRN Reason: CIWA-Ar >25 Metoclopramide HCl (Reglan) 10 mg IV Q6H PRN PRN Reason: Nausea And Vomiting Ondansetron HCl (Zofran) 4 mg IV Q8H PRN PRN Reason: Nausea And Vomiting Pantoprazole Sodium (Protonix) 40 mg PO QDAY [facility] Sodium Chloride (Sodium Chloride Flush Syringe 10 Ml) 10 ml IV BID [facility] Last Admin: 05/17/18 09:14 Dose: 10 ml Documented by: Sodium Chloride (Sodium Chloride Flush Syringe 10 Ml) 10 ml IV PRN PRN PRN Reason: LINE FLUSH medications reviewed/updated as required Review of Systems - Review of Systems All systems: negative Gastrointestinal: nausea, vomiting, hematemesis, no abdominal pain, no BRBPR, no melena, no hematochezia Exam - Constitutional Vital Signs: Temp Pulse Resp BP Pulse Ox 97.4 F L 94 H 18 129/90 100 05/17/18 10:10 05/17/18 10:10 05/17/18 10:10 05/17/18 10:10 05/17/18 10:10 General appearance: no acute distress - EENT Eyes: PERRL, EOM intact ENT: hearing intact - Respiratory Respiratory: bilateral: CTA - Cardiovascular Rhythm: regular - Gastrointestinal General gastrointestinal: Present: soft, non-tender, non-distended, normal bowel sounds - Neurologic Neurological: alert and oriented x3 - Labs CBC & Chem 7: 05/17/18 10:03 05/17/18 05:34 Lab Results: Laboratory Results - last 24 hr 05/16/18 05/16/18 05/17/18 23:39 23:39 05:34 WBC 7.8 RBC 4.90 Hgb 15.3 H 15.6 H Hct 44.2 45.2 MCV 92 MCH 32 MCHC 35 H RDW 14.3 Plt Count 162 Lymph % (Auto) 20.6 [place] % (Auto) 12.4 H Eos % (Auto) 0.7 Baso % (Auto) 0.4 Lymph # 1.6 [place] # 1.0 H Eos # 0.1 Baso # 0.0 Seg Neutrophils % 65.9 Seg Neutrophils # 5.1 Sodium Potassium Chloride Carbon Dioxide Anion Gap BUN Creatinine Estimated GFR BUN/Creatinine Ratio Glucose Hemoglobin A1c 5.8 Calcium Total Bilirubin AST ALT Alkaline Phosphatase Total Protein Albumin Albumin/Globulin Ratio 05/17/18 05/17/18 05:34 10:03 WBC RBC Hgb 15.0 Hct 43.4 MCV MCH MCHC RDW Plt Count Lymph % (Auto) [place] % (Auto) Eos % (Auto) Baso % (Auto) Lymph # [place] # Eos # Baso # Seg Neutrophils % Seg Neutrophils # Sodium 136 L Potassium 3.4 L Chloride 97.2 L Carbon Dioxide 25 Anion Gap 17 BUN 15 Creatinine 1.0 Estimated GFR > 60 BUN/Creatinine Ratio 15 Glucose 102 H Hemoglobin A1c Calcium 8.4 Total Bilirubin 1.20 AST 32 ALT 46 Alkaline Phosphatase 66 Total Protein 6.8 Albumin 3.7 L Albumin/Globulin Ratio 1.2 Assessment and Plan 1.GI bleed/hematemesis 2.ETOH abuse -afebrile -WBC 7.8 -plt WNL (162) -INR 0.85 -LFTs WNL -abd CT w/o acute process (liver with fatty infiltration) -H/H WNL (15.0/43.4)-stable -continue to monitor H/H and transfuse as needed-currently HD stable -patient reports multiple episodes of N/V after heavy alcohol consumption with emesis initially non-bloody and then became bloody (bright red blood) with subsequent episodes. No melena or hematochezia. -etiology-likely M-W tear vs other -clinically, patient is stable with no active signs of bleeding overnight or this am. Denies abd pain or N/V. Requesting to eat. -no plan for EGD at this time -okay to start on diet -continue PPI and supportive care -alcohol cessations discussed/encouraged with patient- monitor for signs of withdrawal -if no further bleeding and labs remain stable, patient okay to be d/c per GI standpoint on PPI with f/u in clinic ~1-2 weeks (due for screening colonoscopy as outpatient as well) -will sign off, please call if needed
[2018-05-17] MEDS: PROTONIX PO SCH (13:44)
[2018-05-17] MEDS: D5NS 1,000 ML IV SCH (13:44)
[2018-05-17 15:34] LABS: Hemoglobin 15.4 gm/dl (11.8-15.2)
--- NOTE | 2018-05-17 16:05 | Progress Note ---
Assessment and Plan Assessment and plan: Patient is a 58 y/o male with PMH of HTN, allergic rhinitis, depression, PTSD, and alcohol dependency who presented to ED with c/o vomiting blood for last 2 days. The patient reports 3 episodes. The patient reports of this a recurrent problem following alcohol consumption. Although in the past he does not see blood in the emesis. Patient reports multiple episodes of N/V following a night of heavy alcohol consumption with emesis being non-bloody with initial episodes and then became bloody with bright red blood on subsequent episodes. CT of the abdomen: IMPRESSION: No acute process is identified. Fatty infiltration of the liver. Bilateral renal cysts. Nonobstructing left renal stone. Mild diverticulosis of the colon. Chest x-ray: IMPRESSION: Unremarkable AP chest. Upper GI bleed suspect Olga-Bear tear Hematemesis Rule out alcoholic hepatitis Alcohol use disorder with mild to moderate withdrawal Leukocytosis-resolved Hypokalemia Fatty liver Allergic rhinitis Depression Plan of care Continue supportive care CIWA protocol GI input is noted or recommended outpatient follow-up on discharge Extensive counseling provided to the patient patient verbalizes understanding and needs to enroll in AA for EtOH detox. Monitor his H&H stable at this time no further bleeding noted Anticipated discharge in 24-48 hours Replace electrolytes DVT and GI prophylaxis After discussed with the GI team and also the patient's History Interval history: Patient seen and examined still with complaints of withdrawal symptoms requesting for more Ativan. Reports heavy alcohol use. Reports withdrawal symptoms when he is not drinking. Denies any chest pain nausea vomiting or diarrhea denies any abdominal pain. Hospitalist Physical - Physical exam Narrative exam: VITAL SIGNS: Reviewed. GENERAL: The patient appeared well nourished and normally developed, Vital signs as documented. HEAD: No signs of head trauma. EYES: Pupils are equal. Extraocular motions intact. EARS: Hearing grossly intact. MOUTH: Oropharynx is normal. NECK: No adenopathy, no JVD. CHEST: Chest with clear breath sounds bilaterally. No wheezes, rales, or rhonchi. CARDIAC: Regular rate and rhythm. S1 and S2, without murmurs, gallops, or rubs. VASCULAR: No Edema. Peripheral pulses normal and equal in all extremities. ABDOMEN: Soft, non tender and non distended. No rebound or guarding, and no masses palpated. Bowel Sounds normal. MUSCULOSKELETAL: Good range of motion of all major joints. Extremities without clubbing, cyanosis or edema. NEUROLOGIC EXAM: Alert and oriented x 3 fine tremors noted otherwise normal. No focal sensory or strength deficits. Speech normal. Follows commands. PSYCHIATRIC: Mood normal. SKIN: No rash or lesions. - Constitutional Vitals: Temp Pulse Resp BP Pulse Ox 98.4 F 112 H 18 122/87 95 05/17/18 15:15 05/17/18 15:15 05/17/18 15:15 05/17/18 15:15 05/17/18 15:15 General appearance: Present: no acute distress, well-nourished Results - Labs CBC & Chem 7: 05/17/18 15:07 05/17/18 05:34 Labs: Laboratory Last Values WBC 7.8 K/mm3 (4.5-11.0) 05/17/18 05:34 RBC 4.90 M/mm3 (3.65-5.03) 05/17/18 05:34 Hgb 15.4 gm/dl (11.8-15.2) H 05/17/18 15:07 Hct 43.0 % (35.5-45.6) 05/17/18 15:07 MCV 92 fl (84-94) 05/17/18 05:34 MCH 32 pg (28-32) 05/17/18 05:34 MCHC 35 % (32-34) H 05/17/18 05:34 RDW 14.3 % (13.2-15.2) 05/17/18 05:34 Plt Count 162 K/mm3 (140-440) 05/17/18 05:34 Lymph % (Auto) 20.6 % (13.4-35.0) 05/17/18 05:34 [place] % (Auto) 12.4 % (0.0-7.3) H 05/17/18 05:34 Eos % (Auto) 0.7 % (0.0-4.3) 05/17/18 05:34 Baso % (Auto) 0.4 % (0.0-1.8) 05/17/18 05:34 Lymph # 1.6 K/mm3 (1.2-5.4) 05/17/18 05:34 [place] # 1.0 K/mm3 (0.0-0.8) H 05/17/18 05:34 Eos # 0.1 K/mm3 (0.0-0.4) 05/17/18 05:34 Baso # 0.0 K/mm3 (0.0-0.1) 05/17/18 05:34 Add Manual Diff Complete 05/16/18 09:37 Total Counted 100 05/16/18 09:37 Seg Neutrophils % 65.9 % (40.0-70.0) 05/17/18 05:34 Seg Neuts % (Manual) 83.0 % (40.0-70.0) H 05/16/18 09:37 Band Neutrophils % 2.0 % 05/16/18 09:37 Lymphocytes % (Manual) 11.0 % (13.4-35.0) L 05/16/18 09:37 Reactive Lymphs % (Man) 1.0 % 05/16/18 09:37 Monocytes % (Manual) 3.0 % (0.0-7.3) 05/16/18 09:37 Eosinophils % (Manual) 0 % (0.0-4.3) 05/16/18 09:37 Basophils % (Manual) 0 % (0.0-1.8) 05/16/18 09:37 Metamyelocytes % 0 % 05/16/18 09:37 Myelocytes % 0 % 05/16/18 09:37 Promyelocytes % 0 % 05/16/18 09:37 Blast Cells % 0 % 05/16/18 09:37 Nucleated RBC % Not Reportable 05/16/18 09:37 Seg Neutrophils # 5.1 K/mm3 (1.8-7.7) 05/17/18 05:34 Seg Neutrophils # Man 11.2 K/mm3 (1.8-7.7) H 05/16/18 09:37 Band Neutrophils # 0.3 K/mm3 05/16/18 09:37 Lymphocytes # (Manual) 1.5 K/mm3 (1.2-5.4) 05/16/18 09:37 Abs React Lymphs (Man) 0.1 K/mm3 05/16/18 09:37 Monocytes # (Manual) 0.4 K/mm3 (0.0-0.8) 05/16/18 09:37 Eosinophils # (Manual) 0.0 K/mm3 (0.0-0.4) 05/16/18 09:37 Basophils # (Manual) 0.0 K/mm3 (0.0-0.1) 05/16/18 09:37 Metamyelocytes # 0.0 K/mm3 05/16/18 09:37 Myelocytes # 0.0 K/mm3 05/16/18 09:37 Promyelocytes # 0.0 K/mm3 05/16/18 09:37 Blast Cells # 0.0 K/mm3 05/16/18 09:37 WBC Morphology Not Reportable 05/16/18 09:37 Hypersegmented Neuts Not Reportable 05/16/18 09:37 Hyposegmented Neuts Not Reportable 05/16/18 09:37 Hypogranular Neuts Not Reportable 05/16/18 09:37 Smudge Cells Not Reportable 05/16/18 09:37 Toxic Granulation Not Reportable 05/16/18 09:37 Toxic Vacuolation Not Reportable 05/16/18 09:37 Dohle Bodies Not Reportable 05/16/18 09:37 [place]-Huet Anomaly Not Reportable 05/16/18 09:37 Analilia Rods Not Reportable 05/16/18 09:37 Platelet Estimate Consistent w auto 05/16/18 09:37 Clumped Platelets Not Reportable 05/16/18 09:37 Plt Clumps, EDTA Not Reportable 05/16/18 09:37 Large Platelets Not Reportable 05/16/18 09:37 Giant Platelets Not Reportable 05/16/18 09:37 Platelet Satelliting Not Reportable 05/16/18 09:37 Plt Morphology Comment Not Reportable 05/16/18 09:37 RBC Morphology Not Reportable 05/16/18 09:37 Dimorphic RBCs Not Reportable 05/16/18 09:37 Polychromasia Not Reportable 05/16/18 09:37 Hypochromasia Not Reportable 05/16/18 09:37 Poikilocytosis Not Reportable 05/16/18 09:37 Anisocytosis 1+ 05/16/18 09:37 Microcytosis Not Reportable 05/16/18 09:37 Macrocytosis 1+ 05/16/18 09:37 Spherocytes Not Reportable 05/16/18 09:37 Pappenheimer Bodies Not Reportable 05/16/18 09:37 Sickle Cells Not Reportable 05/16/18 09:37 Target Cells Not Reportable 05/16/18 09:37 Tear Drop Cells Not Reportable 05/16/18 09:37 Ovalocytes Not Reportable 05/16/18 09:37 Helmet Cells Not Reportable 05/16/18 09:37 [place] Bodies Not Reportable 05/16/18 09:37 [place] Rings Not Reportable 05/16/18 09:37 Bar Cells Not Reportable 05/16/18 09:37 Bite Cells Not Reportable 05/16/18 09:37 Crenated Cell Not Reportable 05/16/18 09:37 Elliptocytes Not Reportable 05/16/18 09:37 Acanthocytes (Spur) Not Reportable 05/16/18 09:37 Rouleaux Not Reportable 05/16/18 09:37 Hemoglobin C Crystals Not Reportable 05/16/18 09:37 Schistocytes Not Reportable 05/16/18 09:37 Malaria parasites Not Reportable 05/16/18 09:37 Adyday Bodies Not Reportable 05/16/18 09:37 Hem Pathologist Commnt No 05/16/18 09:37 PT 12.1 Sec. (12.2-14.9) L 05/16/18 09:37 INR 0.85 (0.87-1.13) L 05/16/18 09:37 APTT 21.8 Sec. (24.2-36.6) L 05/16/18 09:37 Sodium 136 mmol/L (137-145) L 05/17/18 05:34 Potassium 3.4 mmol/L (3.6-5.0) L 05/17/18 05:34 Chloride 97.2 mmol/L (98-107) L 05/17/18 05:34 Carbon Dioxide 25 mmol/L (22-30) 05/17/18 05:34 Anion Gap 17 mmol/L 05/17/18 05:34 BUN 15 mg/dL (9-20) 05/17/18 05:34 Creatinine 1.0 mg/dL (0.8-1.5) 05/17/18 05:34 Estimated GFR > 60 ml/min 05/17/18 05:34 BUN/Creatinine Ratio 15 % 05/17/18 05:34 Glucose 102 mg/dL (75-100) H 05/17/18 05:34 Hemoglobin A1c 5.8 % (4-6) 05/16/18 23:39 Calcium 8.4 mg/dL (8.4-10.2) 05/17/18 05:34 Total Bilirubin 1.20 mg/dL (0.1-1.2) 05/17/18 05:34 AST 32 units/L (5-40) 05/17/18 05:34 ALT 46 units/L (7-56) 05/17/18 05:34 Alkaline Phosphatase 66 units/L (35-129) 05/17/18 05:34 NT-Pro-B Natriuret Pep 101.4 pg/mL (0-900) 05/16/18 11:00 Total Protein 6.8 g/dL (6.3-8.2) 05/17/18 05:34 Albumin 3.7 g/dL (3.9-5) L 05/17/18 05:34 Albumin/Globulin Ratio 1.2 % 05/17/18 05:34 Blood Type O NEGATIVE 05/16/18 09:37 Antibody Screen Negative 05/16/18 09:37 Active Medications - Current Medications Current Medications: Generic Name Dose Route Start Last Admin Trade Name Freq PRN Reason Stop Dose Admin Acetaminophen 650 mg 05/16/18 22:01 Tylenol PO Q4H PRN Pain MILD(1-3)/Fever >100.5/PRIDE Chlordiazepoxide HCl 50 mg 05/16/18 13:37 Librium PO Q1HR PRN CIWA-Ar 8-15 Chlordiazepoxide HCl 100 mg 05/16/18 13:37 Librium PO Q1HR PRN CIWA-Ar 16-25 Clonidine HCl 0.1 mg 05/16/18 22:00 05/16/18 23:48 Catapres-Tts Patch TD 0.1 mg Tu ELIZABETH Administration Fluticasone Propionate 50 mcg 05/17/18 10:00 Flonase NS QDAY ELIZABETH Hydromorphone HCl 0.5 mg 05/16/18 22:01 Dilaudid IV Q3H PRN Pain , Severe (7-10) Dextrose/Sodium Chloride 1,000 mls @ 75 mls/hr 05/16/18 23:00 05/17/18 13:44 D5ns IV 75 mls/hr DIRECT ELIZABETH Administration Lorazepam 2 mg 05/16/18 13:37 05/17/18 05:49 Ativan PO 2 mg Q1HR PRN Administration CIWA-Ar 8-15 Lorazepam 4 mg 05/16/18 13:37 Ativan PO Q1HR PRN CIWA-Ar 16-25 Lorazepam 4 mg 05/16/18 13:37 Ativan IV Q15MIN PRN CIWA-Ar >25 Metoclopramide HCl 10 mg 05/16/18 22:01 Reglan IV Q6H PRN Nausea And Vomiting Ondansetron HCl 4 mg 05/16/18 22:01 Zofran IV Q8H PRN Nausea And Vomiting Pantoprazole Sodium 40 mg 05/17/18 11:00 05/17/18 13:44 Protonix PO 40 mg QDAY ELIZABETH Administration Sodium Chloride 10 ml 05/17/18 10:00 05/17/18 09:14 Sodium Chloride Flush Syringe 10 Ml IV 10 ml BID ELIZABETH Administration Sodium Chloride 10 ml 05/16/18 22:01 Sodium Chloride Flush Syringe 10 Ml IV PRN PRN LINE FLUSH Nutrition/Malnutrition Assess - Dietary Evaluation Nutrition/Malnutrition Findings: Nutrition Notes Start: 05/17/18 12:07 Freq: Status: Active Protocol: Document 05/17/18 12:07 TW (Rec: 05/17/18 12:50 TW [id number]) Co-Sign 05/17/18 12:07 LP Nutrition Notes Need for Assessment generated from: half sole fitter,MST Initial or Follow up Brief Note Current Diagnosis Hypertension Other Pertinent Diagnosis UGIB Current Diet GI soft Subjective/Other Information RN screen for MST risk. Pt sleeping at time of visit. Burn Absent Trauma Absent Nutrition Intervention Follow-Up By: 05/18/18 Additional Comments F/U for assessment
[2018-05-18] MEDS: ATIVAN PO PRN ×3 (00:54→10:56)
[2018-05-18] MEDS: D5NS 1,000 ML IV SCH (00:55)
[2018-05-18] MEDS: SODIUM CHLORIDE FLUSH SYRINGE 10 ML IV SCH ×2 (06:53→10:57)
[2018-05-18] MEDS: PROTONIX PO SCH (10:57)
[2018-05-18] MEDS: FLONASE NS SCH (10:57)
--- NOTE | 2018-05-18 11:52 | Discharge Summary ---
Providers - Providers Date of Admission: 05/16/18 14:52 Attending physician: BARBARA NORTH MD 05/16/18 22:01 Consult to Physician [CONS] Routine Comment: Consulting Provider: BEV WATKINS Physician Instructions: Reason For Exam: GI bleed Primary care physician: COMPLIANCE ADVISOR Hospitalization Reason for admission: gi bleed Condition: Stable Hospital course: Patient is a 58 y/o male with PMH of HTN, allergic rhinitis, depression, PTSD, and alcohol dependency who presented to ED with c/o vomiting blood for last 2 days. The patient reports 3 episodes. The patient reports of this a recurrent problem following alcohol consumption. Although in the past he does not see blood in the emesis. Patient reports multiple episodes of N/V following a night of heavy alcohol consumption with emesis being non-bloody with initial episodes and then became bloody with bright red blood on subsequent episodes. CT of the abdomen: IMPRESSION: No acute process is identified. Fatty infiltration of the liver. Bilateral renal cysts. Nonobstructing left renal stone. Mild diverticulosis of the colon. Chest x-ray: IMPRESSION: Unremarkable AP chest. GI evaluated the patient and recommended outpatient eval since h/h is stable.the patient reported that he has PTSD and this leads him to drink. he denies suicidal or homicidal ideation. I [facility] with [facility], we also recommended AA. his bp was equally controlled and meds renewed prior to discharge Upper GI bleed suspect Olga-Bear tear Hematemesis Rule out alcoholic hepatitis Alcohol use disorder with mild to moderate withdrawal Leukocytosis-resolved Hypokalemia Fatty liver Allergic rhinitis Depression PTSD. -informs me that this is why he drinks heavily due to the anxiety as a result. -Recommended Psych eval outpatient. Disposition: - TO HOME OR SELFCARE Time spent for discharge: 35 MINS Core Measure Documentation - Palliative Care Palliative Care/ Comfort Measures: Not Applicable - Core Measures Any of the following diagnoses?: none Exam - Physical Exam Narrative exam: VITAL SIGNS: Reviewed. GENERAL: The patient appeared well nourished and normally developed, Vital signs as documented. HEAD: No signs of head trauma. EYES: Pupils are equal. Extraocular motions intact. EARS: Hearing grossly intact. MOUTH: Oropharynx is normal. NECK: No adenopathy, no JVD. CHEST: Chest with clear breath sounds bilaterally. No wheezes, rales, or rhonchi. CARDIAC: Regular rate and rhythm. S1 and S2, without murmurs, gallops, or rubs. VASCULAR: No Edema. Peripheral pulses normal and equal in all extremities. ABDOMEN: Soft, non tender and non distended. No rebound or guarding, and no masses palpated. Bowel Sounds normal. MUSCULOSKELETAL: Good range of motion of all major joints. Extremities without clubbing, cyanosis or edema. NEUROLOGIC EXAM: Alert and oriented x 3 fine tremors noted otherwise normal. No focal sensory or strength deficits. Speech normal. Follows commands. PSYCHIATRIC: Mood normal. SKIN: No rash or lesions. - Constitutional Vitals: Temp Pulse Resp BP Pulse Ox 97.6 F 95 H 20 122/80 98 05/18/18 05:42 05/18/18 05:42 05/18/18 05:42 05/18/18 05:42 05/18/18 05:42 Plan Activity: advance as tolerated, fall precautions Diet: regular Special Instructions: record daily BP diary, follow up in rehab (AA) Additional Instructions: Follow with psychiatry via [place] primary doctor Follow up with: HAJA AMBROSE MD [Staff Physician] - 14 Days PRIMARY CARE, [Primary Care Provider] - 3-5 Days Prescriptions: cloNIDine-TTS PATCH [Catapres-Tts Patch] 0.1 mg TD Tu #30 patch Folic Acid 0.4 mg PO QDAY #30 tablet chlordiazePOXIDE [Librium] 25 mg PO Q8H #14 capsule Multivitamin Tab [Multiple Vitamin TAB (Theragran)] 1 each PO QDAY #30 tablet Pantoprazole [Protonix TAB] 40 mg PO QDAY #30 tablet Thiamine [Vitamin B-1] 100 mg PO QDAY #30 tablet
[2018-05-18 12:18] VITALS: BP 134/86
== END 2018-05-18 14:40 | disposition home or self-care (01) | DRG 369 ==
LOC: ED 08:40 → 3A 14:52
PROVIDERS: ADMIT Internal Medicine; ATTEND Internal Medicine
DX: K22.6 Gastro-esophageal laceration-hemorrhage syndrome (principal); F10.239 Alcohol dependence with withdrawal, unspecified; I10 Essential (primary) hypertension; K70.10 Alcoholic hepatitis without ascites; Y90.9 Presence of alcohol in blood, level not specified; J30.1 Allergic rhinitis due to pollen; E87.6 Hypokalemia; K76.0 Fatty (change of) liver, not elsewhere classified; F32.9 Major depressive disorder, single episode, unspecified; Z87.891 Personal history of nicotine dependence; Z90.49 Acquired absence of other specified parts of digestive tract; Z79.82 Long term (current) use of aspirin; Z79.899 Other long term (current) drug therapy
CPT/HCPCS: 36415; 71045; 74177; 80053; 83036; 83880; 85007; 85014; 85018; 85025; 85610; 85730; 86850; 86900; 86901; 90686; 93005; 93010; G0378; C9113; J2270; J7042; Q9967